=== PATIENT | male | born 1990 | race Two or more races ===

== ENCOUNTER 2018-08-21 18:18 | Emergency (ER) | payer OTHER ==
[~2018-08-21] VITALS: Ht 177.8 cm; Wt 75.6 kg
[2018-08-21 18:37] VITALS: BP 123/66
--- NOTE | 2018-08-21 18:49 | NUR ---
PT AMBULATORY TO ROOM 9 W/ C/O R RING FINGER LAC BELOW NAIL AND SWELLING. STATES HE WAS CARRYING RUBARB AND TRIPPED AND FELL ON THUMB. WAS SEEN AT [facility] AND STATES HE GOT XR AND WAS TOLD IT WAS FRACTURED. PT RESTING ON [facility]. BOBBY.
[2018-08-21] MEDS ORDERED: LIDOCAINE-MPF 1%, 5ML ONE ×2 (19:14→19:15)
[2018-08-21] MEDS ORDERED: DIPH,PERTUSS(ACELL),TET VAC/PF 0.5 ML IM-VACC ONE ×2 (19:14→20:00)
[2018-08-21] MEDS ORDERED: LIDOCAINE-MPF 1%, 5ML INFIL ONE (19:30)
[2018-08-21] MEDS: CEFAZOLIN 1,000 MG IM ONE ×2 (19:31→19:40)
[2018-08-21] MEDS ORDERED: CEFAZOLIN 1,000 MG ONE (19:32)
== END 2018-08-21 20:38 ==
LOC: ED 20:15
DX: S61.214A Laceration without foreign body of right ring finger without damage to nail, initial encounter (principal); W18.30XA Fall on same level, unspecified, initial encounter; Y93.89 Activity, other specified; Y92.69 Other specified industrial and construction area as the place of occurrence of the external cause; Y99.0 Civilian activity done for income or pay
CPT/HCPCS: 12041; 90471; 90715; 96372; 99284; J0690